=== PATIENT | male | born 1995 | race Hispanic/Latino ===

== ENCOUNTER 2017-06-19 19:25 | Emergency (ER) | payer OTHER ==
[~2017-06-19] VITALS: Ht 160 cm; Wt 68.0 kg
[2017-06-20] MEDS ORDERED: NORCO 5-325 TA1 EACH PO (00:13)
[2017-06-20] MEDS ORDERED: AUGMENTIN 875-1 EACH PO (00:13)
== END 2017-06-20 00:46 | disposition home or self-care (01) ==
LOC: ED 19:25
PROC: 0HQGXZZ Repair Left Hand Skin, External Approach (ICD-10-PCS; principal; 2017-06-19)
DX: S67.195A Crushing injury of left ring finger, initial encounter (principal); S62.522B Displaced fracture of distal phalanx of left thumb, initial encounter for open fracture; Z23 Encounter for immunization; W23.0XXA Caught, crushed, jammed, or pinched between moving objects, initial encounter; Y92.69 Other specified industrial and construction area as the place of occurrence of the external cause; Y99.0 Civilian activity done for income or pay
CPT/HCPCS: 12002; 73140; 90471; 90715; 99283

== ENCOUNTER 2017-06-22 07:15 | Emergency (ER) | payer OTHER ==
[~2017-06-22] VITALS: Ht 160 cm; Wt 68.0 kg
[~2017-06-22 07:15] MED LIST: AUGMENTIN 875-1 EACH PO; NORCO 5-325 TA1 EACH PO
== END 2017-06-22 08:05 | disposition home or self-care (01) ==
LOC: ED 07:15
DX: S67.195D Crushing injury of left ring finger, subsequent encounter (principal); S61.315D Laceration without foreign body of left ring finger with damage to nail, subsequent encounter; X58.XXXD Exposure to other specified factors, subsequent encounter; Z79.2 Long term (current) use of antibiotics
CPT/HCPCS: 99282

== ENCOUNTER 2017-07-03 08:01 | Emergency (ER) | payer OTHER ==
[~2017-07-03] VITALS: Ht 160 cm; Wt 68.0 kg
== END 2017-07-03 10:14 | disposition home or self-care (01) ==
LOC: ED 08:01
DX: S62.635D Displaced fracture of distal phalanx of left ring finger, subsequent encounter for fracture with routine healing (principal); S61.215D Laceration without foreign body of left ring finger without damage to nail, subsequent encounter; X58.XXXD Exposure to other specified factors, subsequent encounter
CPT/HCPCS: 73140; 99283